=== PATIENT | male | born 1995 | race Caucasian/White ===

== ENCOUNTER 2023-06-11 18:41 | Emergency (ER) | payer OTHER ==
[~2023-06-11] VITALS: Ht 177.8 cm; Wt 87.0 kg
[2023-06-11 18:44] VITALS: O2SAT 100
[2023-06-11] MEDS ORDERED: KETOROLAC 60MG/2ML VIAL IM ONE (19:30)
[2023-06-11] MEDS ORDERED: ACETAMINOPHEN 325MG TABLET PO ONE (19:30)
[2023-06-11 20:20] VITALS: BP 147/104
[2023-06-11 21:45] VITALS: PULSE 80; RESP 18; TEMP 97.9
== END 2023-06-11 22:05 | disposition home or self-care (01) ==
LOC: ER 18:41
DX: S52.131A Displaced fracture of neck of right radius, initial encounter for closed fracture (principal); X58.XXXA Exposure to other specified factors, initial encounter; Y93.89 Activity, other specified; Y92.89 Other specified places as the place of occurrence of the external cause; Y99.8 Other external cause status
CPT/HCPCS: 73090; 73560; 96372; 99284; J1885; Z7610; A4565